=== PATIENT | male | born 1965 | race Caucasian/White ===

== ENCOUNTER → 2018-11-14 | Day surgery (SDC) | payer OTHER ==
[~2018-11-14] MED LIST: ASPI-630 PO; CHOL2000 PO; CITA20TA9 PO; FAMOTIDINE 20 MG/2 ML VIAL ONE; FEXO180T81 PO; IV RINGERS,LACTATED 1000ML 1,000 ML IV ONE; LIDOCAINE 2% PF 5 ML VIAL. ONE; LISI10TA2 PO; MONT10TA49 PO; ONDANSETRON PF 4 MG/2 ML VIAL. ONE; PROPOFOL 40 ML IV ONE; SIMV20TA PO
[2018-11-14 08:39] VITALS: BP 112/55
--- NOTE | 2018-11-14 10:13 | HP ---
ADMIT DATE: 11/14/2018 REFERRING PHYSICIAN: Jovany Pham MPH REASON FOR ADMISSION: Screening colonoscopy and family history of colon cancer. HISTORY OF PRESENT ILLNESS: A 53-year-old male with past medical history significant for hypertension, hyperlipidemia as well as gastroesophageal reflux disease, status post Rusty fundoplication, status post cholecystectomy, hernia surgery, vasectomy seen for an interval colon exam. Last exam was done approximately 10 years ago, which was nonrevealing. Denies any change in bowel habits, diarrhea, constipation, or bleeding. FAMILY HISTORY: Positive for colon cancer with his mother who is . He is otherwise without additional complaints with stable weight and appetite. PAST MEDICAL HISTORY: Hypertension, hyperlipidemia, asthma. ALLERGIES: SULFA, LATEX, CHLORZOXAZONE. MEDICATIONS: Include aspirin, vitamin D, Celexa, Camilla, lisinopril, montelukast, and simvastatin. FAMILY AND SOCIAL HISTORY: Significant for colon cancer in his mother. SOCIAL HISTORY: He is a nonsmoker and social drinker. PAST SURGICAL HISTORY: Gallbladder, hernia, Rusty and vasectomy. REVIEW OF SYSTEMS: Per records. PHYSICAL EXAMINATION: GENERAL: Reveals a well-nourished, well-developed male who is alert, cooperative, in no acute distress. VITAL SIGNS: Temperature is 97, pulse 72, and respiratory rate 18. HEENT: Normocephalic, atraumatic head. Pupils and extraocular muscles are not tested. Sclerae anicteric. NECK: Supple. LUNGS: Clear. CARDIOVASCULAR: Reveals an S1, S2 without S3, S4 or appreciable murmur. ABDOMEN: Reveals a soft abdomen, normal bowel sounds, without appreciable hepatosplenomegaly. EXTREMITIES: Reveals no cyanosis, clubbing or edema. IMPRESSION: Colorectal screening is warranted at this time with positive family history of colon cancer. Risks and benefits of procedure including risk of hemorrhage and perforation have been discussed. The patient is willing to proceed at this time. NEETA STEWART MD DR: GARY/royce JOB#: [id number] / [id number] JOVANY Castellano MPH
== END ==
LOC: ENDOS 06:59
PROVIDERS: ATTEND Internal Medicine Gastroenterology
DX: Z12.11 Encounter for screening for malignant neoplasm of colon (principal); K63.89 Other specified diseases of intestine; K64.0 First degree hemorrhoids; I10 Essential (primary) hypertension; E78.5 Hyperlipidemia, unspecified; J45.909 Unspecified asthma, uncomplicated; K21.9 Gastro-esophageal reflux disease without esophagitis; Z90.49 Acquired absence of other specified parts of digestive tract; Z98.52 Vasectomy status; Z85.038 Personal history of other malignant neoplasm of large intestine; Z72.89 Other problems related to lifestyle
CPT/HCPCS: 45378; J2001; J2405; J2704; J3490